=== PATIENT | male | born 1960 | race Caucasian/White ===

== ENCOUNTER 2017-03-13 06:45 | Inpatient (IN) | payer MEDICARE, BC ==
[2017-03-13] MEDS ORDERED: ONDANSETRON HCL INJ/PF 4 MG/2 ML SDV IV ONE (07:28)
[2017-03-13] MEDS ORDERED: NORMAL SALINE 1000 ML 1,000 ML IV ONE (07:28)
[2017-03-13] MEDS ORDERED: MORPHINE SULFATE 10 MG/ML INJ IV ONE ×3 (07:28→10:40)
[2017-03-13 08:27] LABS: APPEARANCE,URINE SLIGHTLY-CLOUDY; BILIRUBIN,URINE NEGATIVE (NEGATIVE); GLUCOSE, URINE 150 mg/dL (NEGATIVE); KETONES,URINE 80 mg/dL (NEGATIVE); LEUKOCYTE ESTERASE,URINE NEGATIVE (NEGATIVE); NITRITE,URINE NEGATIVE (NEGATIVE); PROTEIN,URINE 100 mg/dL (NEGATIVE); URINE SPECIFIC GRAVITY 1.032; UROBILINOGEN,URINE NEGATIVE mg/dL (<2.0)
[2017-03-13 08:32] LABS: ABSOLUTE BASOPHILS # (AUTO) 0.1 10^3/uL (0.0-0.2); ABSOLUTE MONOCYTES (AUTO) 0.6 10^3/uL (0.1-1.4); ABSOLUTE NEUT (AUTO) 13.7 10^3/uL (1.7-8.2); BASOPHILS % (AUTO) 0.3 % (0-2); EOSINOPHILS % (AUTO) 0.1 % (0-6); HEMATOCRIT 47.4 % (37.9-51.0); HEMOGLOBIN 16.4 g/dL (13.5-17.0); HGB HCT DIFFERENCE 1.8; LYMPHOCYTES % (AUTO) 6.6 % (13-45); MEAN CORPUSCULAR HEMOGLOBIN 29.6 pg (27.0-33.4); MEAN CORPUSCULAR HGB CONC 34.6 g/dL (32.0-36.0); MEAN CORPUSCULAR VOLUME 86 fl (80-97); MONOCYTES % (AUTO) 3.6 % (3-13); RED BLOOD COUNT 5.53 10^6/uL (4.35-5.55); RED CELL DISTRIBUTION WIDTH 12.8 % (11.5-14.0); SEGMENTED NEUTROPHILS % (AUTO) 89.4 % (42-78); WHITE BLOOD COUNT 15.3 10^3/uL (4.0-10.5)
[2017-03-13 08:50] LABS: ALANINE AMINOTRANSFERASE 35 U/L (21-72); ALBUMIN 4.6 g/dL (3.5-5.0); ALKALINE PHOSPHATASE 110 U/L (38-126); ANION GAP 19 (5-19); ASPARTATE AMINO TRANSFERASE 33 U/L (17-59); BILIRUBIN,DIRECT 0.3 mg/dL (0.0-0.4); BILIRUBIN,TOTAL 1.4 mg/dL (0.2-1.3); BLOOD UREA NITROGEN 13 mg/dL (7-20); CALCIUM 9.9 mg/dL (8.4-10.2); CARBON DIOXIDE 20 mmol/L (22-30); CHLORIDE 103 mmol/L (98-107); CREATININE RESULT 1.06 mg/dL (0.52-1.25); GLUCOSE 164 mg/dL (75-110); MAGNESIUM 1.8 mg/dL (1.6-2.3); POTASSIUM 3.7 mmol/L (3.6-5.0); SODIUM 142.1 mmol/L (137-145); TOTAL PROTEIN 7.7 g/dL (6.3-8.2)
--- NOTE | 2017-03-13 09:19 | RADIOLOGY REPORT (SQ) ---
EXAM DESCRIPTION: CT LTD RENAL STONE PROTOCOL ON COMPLETED DATE/TIME: 03/13/2017 9:02 am REASON FOR STUDY: RIGHT RFLANK COMPARISON: CT abdomen pelvis 07/19/2012, 12/12/2008 TECHNIQUE: CT scan of the abdomen and pelvis performed without intravenous or oral contrast. Images reviewed with lung, soft tissue, and bone windows. Reconstructed coronal and sagittal MPR images revi ewed. All images stored on PACS. All CT scanners at this facility use dose modulation, iterative reconstruction, and/or weight based d osing when appropriate to reduce radiation dose to as low as reasonably achievable (ALARA). [facility]: Dose Right [facility]: CareDose [facility]: Dose Right [facility]: Teradose 4D [facility]: [employer] RADIATION DOSE: 7.14mGy. LIMITATIONS: None. FINDINGS: LOWER CHEST: No significant findings. No nodules or infiltrates. NON-CONTRASTED LIVER, SPLEEN, ADRENALS: Evaluation limited by lack of IV contrast. No identified sign ificant masses. PANCREAS: No masses. No peripancreatic inflammatory changes. GALLBLADDER: No identified stones by CT criteria. No inflammatory changes to suggest cholecystitis. RIGHT KIDNEY AND URETER: No suspicious masses. Assessment limited by lack of IV contrast. No signif icant calcifications. No hydronephrosis or hydroureter. LEFT KIDNEY AND URETER: No suspicious masses. Assessment limited by lack of IV contrast. No signifi cant calcifications. No hydronephrosis or hydroureter. AORTA AND RETROPERITONEUM: No aneurysm. No retroperitoneal masses or adenopathy. BOWEL AND PERITONEAL CAVITY: No obvious masses or inflammatory changes. No free fluid. Few scattered colonic diverticuli without CT signs of acute diverticulitis. APPENDIX: Normal. PELVIS, BLADDER, AND ABDOMINAL WALL:No abnormal masses. No free fluid. Bladder normal. BONES: No significant findings. OTHER: No other significant finding. IMPRESSION: No CT evidence of urinary calculi or urinary outflow obstruction. Few descending and sigmoid colon diverticuli without CT signs of acute diverticulitis. TECHNICAL DOCUMENTATION: JOB ID: [id number] Quality ID # [id number]: Final reports with documentation of one or more dose reduction techniques (e.g., Au tomated exposure control, adjustment of the mA and/or kV according to patient size, use of iterative reconstruction technique) 2010 [employer]- All Rights Reserved
[2017-03-13 10:08] LABS: URINE BARBITURATES SCREEN NEGATIVE; URINE METHADONE SCREEN NEGATIVE; URINE OPIATES LOW UNCONFIRMED POSITIVE; URINE PHENCYCLIDINE SCREEN NEGATIVE
[2017-03-13] MEDS: NORMAL SALINE 1000 ML 1,000 ML IV PRN ×2 (10:10→10:11)
[2017-03-13] MEDS ORDERED: CIPROFLOXACIN HCL 500 MG TABLET PO ONE (10:14)
[2017-03-13] MEDS ORDERED: METRONIDAZOLE 500 MG/NS RTU 100 ML IV ONE (10:14)
--- NOTE | 2017-03-13 14:47 | ER Document Report ---
ED General - General Chief Complaint: Abdominal Pain Stated Complaint: ABDOMINAL PAIN/WEAKNESS Time Seen by Provider: 03/13/17 07:12 TRAVEL OUTSIDE OF THE [place] IN LAST 30 DAYS: No - HPI Patient complains to provider of: Right flank right sided abdominal pain Notes: She is coming in the right side of her right abdominal pain. Patient is rolling around the bed looks to be uncomfortable states similar to when he was having a kidney stone in the past. Patient denies any fever chills nausea vomiting. Patient does state some slight diarrhea. Patient denies smoking denies alcohol denies any drug abuse. Patient denies any surgeries on his abdomen. - Related Data Allergies/Adverse Reactions: codeine [Codeine] Adverse Reaction (Mild, Verified 07/19/12 13:01) NSAIDS (Non-Steroidal Anti-Inflamma [Nsaids] Adverse Reaction (Mild, Verified 13:01) Past Medical History - Social History Smoking Status: Unknown if Ever Smoked Family History: Reviewed & Not Pertinent Patient has suicidal ideation: No Patient has homicidal ideation: No - Past Medical History Cardiac Medical History: Reports: Hx Hypercholesterolemia, Hx Hypertension Pulmonary Medical History: Denies: Hx COPD Neurological Medical History: Denies: Hx Cerebrovascular Accident Renal/ Medical History: Reports: Hx Kidney Stones - x 3. Denies: Hx Peritoneal Dialysis Psychiatric Medical History: Reports: Hx Anxiety - Immunizations Hx Diphtheria, Pertussis, Tetanus Vaccination: Yes Review of Systems - Review of Systems Constitutional: No symptoms reported EENT: No symptoms reported Cardiovascular: No symptoms reported Respiratory: No symptoms reported Gastrointestinal: Abdominal pain Genitourinary: No symptoms reported Male Genitourinary: No symptoms reported Musculoskeletal: No symptoms reported Skin: No symptoms reported Hematologic/Lymphatic: No symptoms reported Neurological/Psychological: No symptoms reported Physical Exam - Vital signs Vitals: Pulse Resp BP Pulse Ox 93 24 H 131/83 H 100 03/13/17 06:50 03/13/17 06:50 03/13/17 06:50 03/13/17 06:50 Interpretation: Normal - General General appearance: Alert. No: Appears well - Patient looks to be uncomfortable - HEENT Head: Normocephalic, Atraumatic Eyes: Normal Pupils: PERRL - Respiratory Respiratory status: No respiratory distress Chest status: Nontender Breath sounds: Normal Chest palpation: Normal - Cardiovascular Rhythm: Regular Heart sounds: Normal auscultation Murmur: No - Abdominal Inspection: Normal Distension: No distension Bowel sounds: Normal Tenderness: Tender - Abdominal tenderness Organomegaly: No organomegaly - Back Back: Normal, Nontender - Extremities General upper extremity: Normal inspection, Nontender, Normal color, Normal ROM , Normal temperature General lower extremity: Normal inspection, Nontender, Normal color, Normal ROM , Normal temperature, Normal weight bearing. No: Lori's sign - Neurological Neuro grossly intact: Yes Cognition: Normal Orientation: AAOx4 [place] Coma Scale Eye Opening: Spontaneous [place] Coma Scale Verbal: Oriented [place] Coma Scale Motor: Obeys Commands [place] Coma Scale Total: 15 Speech: Normal Motor strength normal: LUE, RUE, LLE, RLE Sensory: Normal - Psychological Associated symptoms: Normal affect, Normal mood - Skin Skin Temperature: Warm Skin Moisture: Dry Skin Color: Normal Course - Re-evaluation Re-evalutation: 03/13/17 14:42 Is coming in for abdominal pain. Patient does have a sniffing elevated lactic acid and blood in his urine. CT scan noncontrast and IV contrast was performed showing diffuse diverticular disease. Reevaluation patient still having significant tenderness. Multiple IV fluid boluses were ordered patient was given Cipro and Flagyl. A urine drug screen was also performed which returned positive for opiates and amphetamines and marijuana. Although patient was given a good medication this urine drug screen was done prior to this. I did confront the patient about his urine drug screen is that he denied these types of substances on initial visit. Patient states he did take half a Percocet prior to arrival also states he is on Valium. Patient does admit to smoking marijuana 2 weeks ago. Patient denies any amphetamine use. We will continue with IV fluid hydration. Recent evaluation after discussing patient's urine drug screen patient feeling much better now. 03/13/17 15:19 Because of the patient's elevation in lactic acid and continued abdominal pain and did have a surgeon evaluate the patient will admit the patient for observation. - Vital Signs Vital signs: Temp Pulse Resp BP Pulse Ox 98.7 F 98 16 150/97 H 96 03/13/17 14:42 03/13/17 14:42 03/13/17 14:42 03/13/17 14:42 03/13/17 14:42 - Laboratory Result Diagrams: 03/13/17 08:12 03/13/17 08:12 Laboratory results interpreted by me: 03/13/17 03/13/17 03/13/17 07:34 08:12 08:12 WBC 15.3 H Seg Neutrophils % 89.4 H Lymphocytes % 6.6 L Absolute Neutrophils 13.7 H Carbon Dioxide 20 L Glucose 164 H Lactic Acid Total Bilirubin 1.4 H Urine Protein 100 H Urine Glucose (UA) 150 H Urine Ketones 80 H Urine Blood MODERATE H 03/13/17 03/13/17 08:12 13:35 WBC Seg Neutrophils % Lymphocytes % Absolute Neutrophils Carbon Dioxide Glucose Lactic Acid 5.0 H 2.7 H Total Bilirubin Urine Protein Urine Glucose (UA) Urine Ketones Urine Blood Discharge - Discharge Clinical Impression: Marijuana use, Opiate use Abdominal pain Qualifiers: Abdominal location: generalized Qualified Code(s): R10.84 - Generalized abdominal pain Admitting Provider: Surgicalist [facility] Unit Admitted: Surgical Floor Instructions: Abdominal Pain ([facility]), Diverticulitis ([facility]) Additional Instructions: Auditory studies and CAT scans consistent with possible diverticulitis. He may continue to take her pain medication at home. Recommended you stay well- hydrated. May take medication for nausea. Return to the ER symptoms worsen. Prescriptions: Ciprofloxacin HCl [Cipro 500 mg Tablet] 500 mg PO BID #14 tablet Metronidazole [Flagyl 500 mg Tablet] 500 mg PO TID #21 tablet Ondansetron [Zofran Odt 4 mg Tablet] 1 - 2 tab PO Q4H PRN #15 tab.rapdis PRN Reason: For Nausea/Vomiting Referrals: DAKOTA MOTA MD [Primary Care Provider] - Follow up in 3-5 days
[2017-03-13] MEDS ORDERED: MORPHINE SULFATE 10 MG/ML INJ IV PRN (15:43)
--- NOTE | 2017-03-13 15:59 | PDOC H&P ---
History of Present Illness Admission Date/PCP: 03/13/17 15:26 DAKOTA MOTA MD Patient complains of: Abdominal pain since yesterday. History of Present Illness: BAKARI GUIDRY is a 56 year old male, who was in his usual state of health, until yesterday when he developed right-sided and mid abdominal pain, unrelated to food intake. Patient does admit to fried, fatty, and greasy food intolerance , postprandial bloating, gaseousness, indigestion, heartburn, and early satiety. Patient has been having these symptoms for several months. However, today's episode was worse than any other previous episode. Patient denies any fever or chills, choluria or acholic stools, jaundice, or family history of biliary disease. Past Medical History Cardiac Medical History: Reports: Hyperlipidema, Hypertension Pulmonary Medical History: Denies: Chronic Obstructive Pulmonary Disease (COPD) Social History Smoking Status: Unknown if Ever Smoked Family History Family History: Reviewed & Not Pertinent Parental Family History Reviewed: No - Not applicable Children Family History Reviewed: No - Not applicable Sibling(s) Family History Reviewed.: No - Not applicable Medication/Allergy Home Medications: Bisoprolol Fumarate [Zebeta 5 mg Tablet] 5 mg PO 07/19/12 Diazepam [Valium] 10 mg PO QID 07/19/12 Dicyclomine HCl [Bentyl 10 Mg Capsule] 10 mg PO QID 07/19/12 Diltiazem HCl [Dilacor Xr] 180 mg PO DAILY 07/19/12 Hydrocodone/Acetaminophen [Hydrocodon-Acetaminophn 10-660] 1 each PO PRN PRN 07/21 [place]-3/Dha/Epa/Fish Oil [Fish Oil] 1,000 mg PO DAILY 07/19/12 Rosuvastatin Calcium [Crestor 10 mg Tablet] 10 mg PO DAILY 07/19/12 Ciprofloxacin HCl [Cipro 500 mg Tablet] 500 mg PO BID #14 tablet 03/13/17 Metronidazole [Flagyl 500 mg Tablet] 500 mg PO TID #21 tablet 03/13/17 Ondansetron [Zofran Odt 4 mg Tablet] 1 - 2 tab PO Q4H PRN #15 tab.rapdis Allergies/Adverse Reactions: codeine [Codeine] Adverse Reaction (Mild, Verified 07/19/12 13:01) NSAIDS (Non-Steroidal Anti-Inflamma [Nsaids] Adverse Reaction (Mild, Verified 13:01) Physical Exam Vital Signs: Temp Pulse Resp BP Pulse Ox 98.7 F 98 16 150/97 H 96 03/13/17 14:42 03/13/17 14:42 03/13/17 14:42 03/13/17 14:42 03/13/17 14:42 General appearance: PRESENT: no acute distress Head exam: PRESENT: atraumatic, normocephalic Eye exam: PRESENT: conjunctiva pink, EOMI, PERRLA Mouth exam: PRESENT: moist, neck supple, tongue midline Neck exam: PRESENT: full ROM. ABSENT: carotid bruit, JVD, lymphadenopathy, tenderness, thyromegaly, tracheal deviation Respiratory exam: PRESENT: clear to auscultation darleen Cardiovascular exam: PRESENT: RRR. ABSENT: diastolic murmur, systolic murmur GI/Abdominal exam: PRESENT: normal bowel sounds, soft, tenderness - Mild in epigastrium, right upper quadrant, and right flank. ABSENT: guarding, Flanagan's sign, rebound Rectal exam: PRESENT: deferred Results Impressions: Limited or Localized CT 03/13/17 08:19 IMPRESSION: No CT evidence of urinary calculi or urinary outflow obstruction. Few descending and sigmoid colon diverticuli without CT signs of acute diverticulitis. Assessment & Plan - Diagnosis (1) Abdominal pain Qualifiers: Abdominal location: generalized Qualified Code(s): R10.84 - Generalized abdominal pain - Plan Summary Plan Summary: The patient is to undergo ultrasound of the abdomen while in the E.R. If this exam is normal, then HIDA scan with CCK stimulation will be ordered.
[2017-03-13] MEDS ORDERED: ENOXAPARIN SODIUM INJ 40 MG/0.4 ML DISP.SYRIN SUBCUT ONE (16:00)
--- NOTE | 2017-03-13 17:55 | RADIOLOGY REPORT (SQ) ---
EXAM DESCRIPTION: CHEST SINGLE VIEW COMPLETED DATE/TIME: 03/13/2017 4:49 pm REASON FOR STUDY: Preoperative evaluation COMPARISON: 02/15/2017 CT chest. NUMBER OF VIEWS: One view. TECHNIQUE: Single frontal radiographic view of the chest acquired. LIMITATIONS: None. FINDINGS: LUNGS AND PLEURA: No opacities, masses or pneumothorax. No pleural effusion. MEDIASTINUM AND HILAR STRUCTURES: No masses. Contour normal. HEART AND VASCULAR STRUCTURES: Heart normal in size. Normal vasculature. BONES: No acute findings. HARDWARE: None in the chest. OTHER: No other significant finding. IMPRESSION: NO SIGNIFICANT RADIOGRAPHIC FINDING IN THE CHEST. TECHNICAL DOCUMENTATION: JOB ID: [id number] [employer]- All Rights Reserved
[2017-03-13] MEDS: ONDANSETRON HCL INJ/PF 4 MG/2 ML SDV IV PRN (18:53)
[2017-03-13] MEDS: OXYCODONE-ACETAMINOPHEN 5-325 MG TABLET PO PRN (18:54)
[2017-03-13] MEDS: DEXTROSE 5%-LACTATED RINGERS 1,000 ML IV PRN (19:00)
--- NOTE | 2017-03-13 22:00 | RADIOLOGY REPORT (SQ) ---
EXAM DESCRIPTION: U/S ABDOMEN COMPLETE W/O DOP COMPLETED DATE/TIME: 03/13/2017 9:49 pm REASON FOR STUDY: Symptoms consistent with biliary pathology COMPARISON: None. TECHNIQUE: Dynamic and static grayscale images acquired of the abdomen and recorded on PACS. Additio nal selected color Doppler and spectral images recorded. LIMITATIONS: Study limited due to acoustical interference from fat or from air in the bowel. FINDINGS: PANCREAS: Poorly seen secondary to acoustical interference from fat or from air in the bow el. LIVER: Echotexture is coarse with increased echogenicity consistent with fatty infiltration. LIVER VASCULATURE: Normal directional flow of the main portal vein and hepatic veins. GALLBLADDER: No stones. Normal wall thickness. No pericholecystic fluid. ULTRASOUND-DETECTED THURMAN'S SIGN: Negative. INTRAHEPATIC DUCTS AND COMMON DUCT: CBD and intrahepatic ducts normal caliber. No filling defects. INFERIOR VENA CAVA: Poorly seen secondary to acoustical interference from fat or from air in the haydee l. AORTA: Poorly seen secondary to acoustical interference from fat or from air in the bowel. RIGHT KIDNEY: Normal size. Normal echogenicity. No solid or suspicious masses. No hydronephrosis. No calcifications. LEFT KIDNEY: Normal size. Normal echogenicity. No solid or suspicious masses. No hydronephrosis. No calcifications. SPLEEN:Normal size. No solid masses. PERITONEAL AND PLEURAL SPACES: No ascites or effusions. OTHER: No other significant finding. IMPRESSION: FATTY INFILTRATION OF THE LIVER. No gallstones or biliary dilatation identified. TECHNICAL DOCUMENTATION: JOB ID: [id number] [employer]- All Rights Reserved
[2017-03-14] MEDS: OXYCODONE-ACETAMINOPHEN 5-325 MG TABLET PO PRN (06:42)
[2017-03-14] MEDS ORDERED: ENOXAPARIN SODIUM INJ 40 MG/0.4 ML DISP.SYRIN SUBCUT SCH (08:00)
[2017-03-14] MEDS ORDERED: LIDOCAINE 2% INJ-PF (20 MG/ML) 10 ML AMPUL ONE (09:12)
[2017-03-14] MEDS ORDERED: ONDANSETRON HCL INJ/PF 4 MG/2 ML SDV ONE (09:12)
[2017-03-14] MEDS ORDERED: DEXAMETHASONE SOD PHOSPHATE INJ 4 MG/1 ML VIAL ONE (09:12)
[2017-03-14] MEDS ORDERED: ROCURONIUM BROMIDE INJ 50 MG/5 ML VIAL IV ONE (09:12)
[2017-03-14] MEDS ORDERED: METOCLOPRAMIDE HCL INJ/PF 10 MG/2 ML SDV ONE (09:12)
[2017-03-14] MEDS ORDERED: SUCCINYLCHOLINE CHLORIDE INJ 200 MG/10 ML VIAL ONE (09:12)
[2017-03-14] MEDS: ONDANSETRON HCL INJ/PF 4 MG/2 ML SDV IV PRN (10:31)
[2017-03-14 10:56] LABS: HEMATOCRIT 48.4 % (37.9-51.0); HEMOGLOBIN 16.3 g/dL (13.5-17.0); HGB HCT DIFFERENCE 0.5; MEAN CORPUSCULAR HGB CONC 33.6 g/dL (32.0-36.0); MEAN CORPUSCULAR VOLUME 86 fl (80-97); WHITE BLOOD COUNT 25.5 10^3/uL (4.0-10.5)
[2017-03-14] MEDS ORDERED: PHARMACY COMMUNICATION ORDER MC NR (11:00)
[2017-03-14] MEDS ORDERED: OXYCODONE-ACETAMINOPHEN 5-325 MG TABLET NG PRN (11:06)
[2017-03-14 11:18] LABS: ALANINE AMINOTRANSFERASE 29 U/L (21-72); ALBUMIN 3.5 g/dL (3.5-5.0); ALKALINE PHOSPHATASE 76 U/L (38-126); ANION GAP 18 (5-19); ASPARTATE AMINO TRANSFERASE 32 U/L (17-59); BILIRUBIN,DIRECT 0.3 mg/dL (0.0-0.4); BILIRUBIN,TOTAL 1.2 mg/dL (0.2-1.3); BLOOD UREA NITROGEN 21 mg/dL (7-20); CALCIUM 9.1 mg/dL (8.4-10.2); CARBON DIOXIDE 19 mmol/L (22-30); CHLORIDE 101 mmol/L (98-107); CREATININE RESULT 0.95 mg/dL (0.52-1.25); GLUCOSE 196 mg/dL (75-110); POTASSIUM 3.7 mmol/L (3.6-5.0); SODIUM 138.4 mmol/L (137-145); TOTAL PROTEIN 6.5 g/dL (6.3-8.2)
--- NOTE | 2017-03-14 11:20 | RADIOLOGY REPORT (SQ) ---
EXAM DESCRIPTION: KUB/ABDOMEN (SINGLE VIEW) COMPLETED DATE/TIME: 03/14/2017 11:10 am REASON FOR STUDY: Check Placement of NG Tube COMPARISON: 03/13/2017 chest x-ray NUMBER OF VIEWS: One view. TECHNIQUE: Upright radiographic image of the abdomen acquired. LIMITATIONS: None. FINDINGS: BOWEL GAS PATTERN: There are couple gas-filled loops of small bowel in the mid abdomen. T here is large bowel gas present. The overall appearance is not suggestive of obstruction. CALCIFICATIONS: No suspicious calcifications. SOFT TISSUES: There is no free air. There is no organomegaly. HARDWARE: An NG tube extends to the stomach. BONES: No acute fracture. No worrisome bone lesions. OTHER: No other significant finding. IMPRESSION: Nonspecific abdomen. There are couple of prominent gas-filled loops of small bowel. Th petrona could indicate partial small bowel obstruction versus ileus. Is there any clinical evidence of p ancreatitis? TECHNICAL DOCUMENTATION: JOB ID: [id number] [employer]- All Rights Reserved
[2017-03-14 11:30] LABS: BASOPHILS % (MANUAL) 0 % (0-2); EOSINOPHILS % (MANUAL) 0 % (0-6); LYMPHOCYTES % (MANUAL) 6 % (13-45); TOTAL CELLS COUNTED 100
[2017-03-14 11:31] LABS: PLATELET CLUMPS PRESENT; RBC MORPHOLOGY COMMENT NORMO-CYTIC/CHROMIC
[2017-03-14] MEDS ORDERED: ERTAPENEM SODIUM INJ 1 GM VIAL IV ONE (11:53)
[2017-03-14] MEDS ORDERED: NORMAL SALINE 1000 ML 1,000 ML IV ONE (12:00)
[2017-03-14] MEDS: DEXTROSE 5%-LACTATED RINGERS 1,000 ML IV PRN (13:14)
[2017-03-14] MEDS ORDERED: ERTAPENEM SODIUM 1 GM in NORMAL SALINE 50 ML IV SCH (14:00)
[2017-03-14] MEDS ORDERED: ONDANSETRON HCL INJ/PF 4 MG/2 ML SDV IV PRN ×2 (14:44→20:53)
[2017-03-14] MEDS ORDERED: MORPHINE SULFATE 10 MG/ML INJ IV PRN ×2 (14:47→20:53)
--- NOTE | 2017-03-14 16:46 | RADIOLOGY REPORT (SQ) ---
EXAM DESCRIPTION: CT ABD/PELVIS WITH IV ORAL COMPLETED DATE/TIME: 03/14/2017 4:04 pm REASON FOR STUDY: acute abdomen COMPARISON: None. TECHNIQUE: CT scan of the abdomen and pelvis performed using helical scanning technique with dynamic intravenous contrast injection. No oral contrast. Images reviewed with lung, soft tissue, and bone windows. Reconstructed coronal and sagittal MPR images reviewed. Delayed images for evaluation of the urinary system also acquired. All images stored on PACS. All CT scanners at this facility use dose modulation, iterative reconstruction, and/or weight based d osing when appropriate to reduce radiation dose to as low as reasonably achievable (ALARA). [facility]: Dose Right [facility]: CareDose [facility]: Dose Right [facility]: Teradose 4D [facility]: [employer] CONTRAST TYPE AND DOSE: 90mL Isovue 370- low osmolar. RENAL FUNCTION: Creatinine 1 BUN 21 RADIATION DOSE: 18.63mGy. LIMITATIONS: None. FINDINGS: LOWER CHEST: There is subsegmental atelectasis in the lung bases. LIVER: Normal size. No masses or dilated ducts. SPLEEN: Normal size. No focal lesions. PANCREAS: No masses. No significant calcifications. No adjacent inflammation or peripancreatic fluid collections. Pancreatic duct not dilated. GALLBLADDER: No identified stones by CT criteria. No inflammatory changes to suggest cholecystitis. ADRENAL GLANDS: No significant masses or asymmetry. RIGHT KIDNEY AND URETER: No solid masses. No significant calcifications. No hydronephrosis or hyd roureter. LEFT KIDNEY AND URETER: No solid masses. No significant calcifications. No hydronephrosis or hydr oureter. AORTA AND VESSELS: No aneurysm. No dissection. Renal arteries, SMA, celiac without stenosis. RETROPERITONEUM: No retroperitoneal adenopathy, hemorrhage or masses. BOWEL AND PERITONEAL CAVITY: There are some distended loops of small bowel in the mid abdomen. There are areas of thickening of the wall of some of the small bowel loops and of the: . Occasional dive rticula arise from the sigmoid colon. No definite transition point is appreciated in associated with the prominent loops of bowel in mid abdomen. APPENDIX: Normal. PELVIS: There is a small amount of free fluid in the pelvis and around the right colon and around the liver. ABDOMINAL WALL: No masses. No hernias. BONES: No significant or acute findings. OTHER: No other significant finding. IMPRESSION: 1. There is a small amount of ascites. 2. There are some distended loops of small bowel in the upper mid abdomen such that a partial small bowel obstruction cannot be ruled out. No definite transition point is seen, however. 3. There is thickening of the wall of some of the small bowel and most of the colon. There is a his tory of or clinical evidence of inflammatory bowel disease? 4. There is mild diverticulosis coli. TECHNICAL DOCUMENTATION: JOB ID: [id number] Quality ID # [id number]: Final reports with documentation of one or more dose reduction techniques (e.g., Au tomated exposure control, adjustment of the mA and/or kV according to patient size, use of iterative reconstruction technique) 2010 [employer]- All Rights Reserved
[2017-03-14] MEDS ORDERED: NORMAL SALINE 1000 ML 1,000 ML IV PRN (18:21)
[2017-03-14] MEDS ORDERED: FENTANYL CITRATE INJ/PF 100 MCG/2 ML AMPUL ONE (19:17)
[2017-03-14] MEDS ORDERED: HYDROMORPHONE HCL INJ/PF 2 MG/ML AMPULE ONE (19:17)
[2017-03-14] MEDS ORDERED: PROPOFOL INJ 200 MG/20 ML VIAL IV ONE (19:18)
[2017-03-14] MEDS ORDERED: ACETAMINOPHEN 100 ML IV ONE (19:18)
[2017-03-14] MEDS ORDERED: MIDAZOLAM 2 MG/2 ML INJ ONE ×2 (19:18→21:44)
[2017-03-14] MEDS ORDERED: EPHEDRINE SULFATE INJ 50 MG/1 ML AMPULE ONE (19:18)
[2017-03-14] MEDS ORDERED: IBUPROFEN INJ 800 MG/8 ML VIAL IV ONE (19:18)
[2017-03-14] MEDS ORDERED: BUPIVACAINE HCL 0.25 % INJ/PF (2.5 MG/1 ML) 30 ML VIAL ONE (19:24)
--- NOTE | 2017-03-14 20:14 | PROGRESS NOTE E ---
Progress Note NAME: BAKARI GUIDRY : 1960 AGE: 56Y DATE: 03/14/2017 ROOM: 415 It is hospital day #2 for the patient admitted to the surgical service for acute abdominal pain. SUBJECTIVE: The patient continues to have abdominal pain and bloating. Earlier today at around 10:00 a.m., he had a nasogastric tube inserted which drained approximately a liter of fluid. The patient continued to have abdominal pain, but it had subsided. The patient was seen by Dr. Campos and found to have significant abdominal tenderness with guarding. The patient's past medical and surgical history are significant for irritable bowel syndrome for which he takes Bentyl. On further review of the patient's medical record, it was determined that the patient although he denied taking narcotics was found to have metabolized in his urine positive for opiates and marijuana. Throughout the day, the patient continued to have abdominal pain but was withhold from receiving pain medications so that we could follow the natural course of his clinical condition. The patient's laboratory profile was repeated, and his white blood cell count had increased to 25,000. The percent neutrophils was not reported. The patient's chemistry showed bicarbonate down to 19, and this was all despite fluid resuscitation during the course of the day. His urine remained very dark. For the above reasons, the patient underwent repeat CT scan of the abdomen and pelvis with IV and enteral contrast delivered through the nasogastric tube. This revealed no evidence of visceral leak or free air, but there was some fluid in the pericolic region on the right side and some fluid in the pelvis. Of note, there was dilated proximal jejunum with what appeared to be a transition point in the left mid posterior abdominal region. The CT scan was reviewed with at least 2 radiologists. OBJECTIVE: Dr. Campos examined the patient today, and despite the patient's self report of feeling better, he continued on physical exam to have peritoneal signs with guarding. By 7:00 p.m. in the evening, I felt that exploratory laparotomy was indicated because of the risk of compromising small bowel due to further delay. PLAN: We therefore plan to take the patient to the operating room for exploratory laparoscopy, possible laparotomy, lysis of adhesions, and any other necessary surgery. This was explained to the patient in detail. He expresses understanding and agreed to proceed. DICTATING PHYSICIAN: RAUDEL CAMPOS M.D. [id number] PHY#: [id number] ID: [id number] JOB#: [id number] ACCT: [id number] cc: >
[2017-03-14] MEDS ORDERED: MEPERIDINE HCL/PF INJ 25 MG/1 ML DISP.SYRIN IV PRN (20:53)
[2017-03-14] MEDS ORDERED: FENTANYL CITRATE INJ/PF 100 MCG/2 ML AMPUL IV PRN ×3 (20:53)
[2017-03-14] MEDS ORDERED: DIPHENHYDRAMINE HCL 50 MG/ML VIAL IV PRN (20:53)
[2017-03-14] MEDS ORDERED: PROMETHAZINE HCL INJ 25 MG/1 ML VIAL IV PRN ×2 (20:53)
--- NOTE | 2017-03-14 22:03 | Operative Report ---
Operative Report DATE OF SURGERY: 03/14/17 PREOPERATIVE DIAGNOSIS: 1. Acute abdomen; rule out small bowel obstruction. 2. Metabolic acidosis POSTOPERATIVE DIAGNOSIS: Same with sequential sections of the jejunum with ischemia and hemorrhagic inflammation OPERATION: 1. Exploratory laparoscopy. 2. Exploratory laparotomy with peritoneal washout. 3. Placement of wound VAC SURGEON: RAUDEL SKINNER ANESTHESIA: GA TISSUE REMOVED OR ALTERED: None COMPLICATIONS: None ESTIMATED BLOOD LOSS: Scant INTRAOPERATIVE FINDINGS: See below PROCEDURE: The patient was taken to the operating room where general anesthesia was induced without complication. Velazco catheter was inserted and slightly cathleen urine returned. An additional IV was started in the patient's left distal forearm. The abdomen was exposed, prepped draped sterile fashion instrumentation set up for laparoscopic possible conversion to open exploratory laparotomy. Surgical timeout and surgical plan discussed. A initial stab was made above the umbilicus and a varies needle was inserted in the peritoneal cavity. Pneumoperitoneum was established. Veress needle was removed and a 5 mm port was placed into the peritoneal cavity and a flexible 5 mm scope was inserted. A second port was placed in the subxiphoid area, 5 mm. Findings are significant for approximately 750 cc of dark bile tinged peritoneal fluid. We aspirated this fluid out, and visualized what we could of the viscera. Findings are significant for a erythematous appearing bowel in the proximal jejunal region. The stomach appeared decompressed successfully with a nasogastric tube. Because I could not ascertain exactly what was going on, we decided to convert to an open exploration The abdomen was open by connecting the previously placed port site incisions. The incision was extended towards the xiphoid process. Bookwalter retractor system was established. The falciform ligament was taken down between clamps and 2-0 Vicryl ties. Systematic examination of the peritoneal cavity included visualization of the stomach and the pylorus which appeared normal. The nasogastric tube was pulled further into the lumen of the body of the stomach. The liver appeared normal as did the gallbladder, although slightly shrunken. It was nonischemic or inflamed. We elevated the transverse colon cephalad, and identified the proximal jejunum which had several loops that were adhesed together with an inflammatory peel these were gently broken up and the 2 loops of jejunum appear to be erythematous edematous but not frankly ischemic. There was no evidence of true stricture banding these 2 loops together. Proximal to these 2 loops was the very first portion of the jejunum extending from the ligament of Treitz to the erythematous loops previously discussed. This first loop of jejunum covering a distance of approximately 15-18 cm was frankly violaceous and ischemic appearing. We warmed up the peritoneal cavity irrigated out several times with warm saline and the appearance of this first jejunal loop did not change significantly. We brought Doppler onto the field and the hand-held probe was used to assess pulse status in the jejunal arcades. There appeared to be reasonable signal strength in the second and third loops of jejunum but the first loop did not have good pulses signals. I did open the ligament of Treitz to free up the fourth portion of the duodenum and segment of bowel appeared pink and viable. Concern that the bowel although threatened was not necrotic, nor perforated and did not warrant at this setting a transection which would have left a transection point just beyond the ligament of Treitz. I discussed this with Dr. Nir Wakefield, trauma critical care surgeon from [facility], who agreed that we should leave this bowel as it is and set the patient up for a second look operation in 18-24 hours to reassess this limb of small bowel. We washed the peritoneal cavity out, then placed a wound VAC in position, specifically the model design for an open VAC pack . The patient was taken to the intensive care unit and also more hospital intubated, hemodynamically stable. Plans will be to transfer the patient to [facility] for further care.
[2017-03-14] MEDS ORDERED: PROPOFOL 100 ML IV ONE (22:10)
[2017-03-14] MEDS ORDERED: PROPOFOL 100 ML IV PRN ×2 (22:33→22:41)
--- NOTE | 2017-03-14 22:48 | DISCHARGE SUMMARY E ---
Discharge Summary NAME: BAKARI GUIDRY : 1960 AGE: 56Y ADMITTED: 03/13/2017 DISCHARGED: 03/15/2017 SUMMARY OF HOSPITALIZATION: The patient is a 56-year-old white male who presents to the emergency department at [facility] complaining of acute onset abdominal pain, right-sided. He was evaluated and found to have abdominal tenderness. A gallbladder ultrasound was diagnosed as unremarkable. The patient's laboratory profile showed leukocytosis and metabolic acidosis with mild hyperglycemia. The patient underwent CT of the abdomen and pelvis without oral or IV contrast, which was essentially nondiagnostic. The patient was admitted to the surgical service and kept n.p.o. and IV fluids. Plans were made to obtain a HIDA scan the following morning. The patient continues to have abdominal pain. The HIDA scan was canceled and the patient had a nasogastric tube inserted for relief. Repeat labs showed a worsening leukocytosis and acidosis. A repeat CT scan with oral contrast was obtained; technically the contrast was placed through the nasogastric tube. This showed findings consistent with a possible small bowel obstruction, proximal jejunum. Because of the patient's deteriorating clinical condition and abnormal CT scan findings, he was taken to the operating room for exploratory surgery. The patient was taken to the operating room by Dr. Campos where he underwent exploratory laparoscopy conversion to exploratory laparotomy, peritoneal washout. He was found to have several loops of jejunum very proximal that were ischemic and/or involved with hemorrhagic inflammation. There was no obvious obstructive band, adhesion, transition point, perforation or necrosis. For this reason the decision was made to place a temporary closure on the abdominal wall, and set the patient up for a second look in 18 to 24 hours. The patient was stabilized at this point and taken to the Intensive Care Unit for further resuscitation. Arrangements were made to transfer the patient to the care of the critical care trauma service at [facility] for additional management under the direction of Dr. Nir Wakefield, string studies director Services at [facility]. FINAL DIAGNOSIS: ACUTE ABDOMEN WITH ISCHEMIC AND HEMORRHAGICALLY INFLAMED JEJUNUM, STATUS POST EXPLORATORY LAPAROTOMY, WASHOUT AND VAC CLOSURE OF THE ABDOMINAL WALL BY DR. CAMPOS. DISPOSITION: Arrangements will be made to transfer the patient via ground or helicopter pending availability to [facility] for further care. DICTATING PHYSICIAN: RAUDEL CAMPOS M.D. [id number] PHY#: [id number] ID: [id number] JOB#: [id number] ACCT: [id number] cc:RAUDEL CAMPOS M.D. E. . GROUP, > [facility]
[2017-03-14 23:12] LABS: ABSOLUTE LYMPHOCYTES (AUTO) 1.1 10^3/uL (0.5-4.7); ABSOLUTE MONOCYTES (AUTO) 0.8 10^3/uL (0.1-1.4); ABSOLUTE NEUT (AUTO) 14.3 10^3/uL (1.7-8.2); ANION GAP 13 (5-19); BASOPHILS % (AUTO) 0.1 % (0-2); BLOOD UREA NITROGEN 14 mg/dL (7-20); CALCIUM 7.9 mg/dL (8.4-10.2); CARBON DIOXIDE 21 mmol/L (22-30); CHLORIDE 104 mmol/L (98-107); CREATININE RESULT 0.92 mg/dL (0.52-1.25); GLUCOSE 126 mg/dL (75-110); HEMATOCRIT 51.5 % (37.9-51.0); HEMOGLOBIN 17.1 g/dL (13.5-17.0); HGB HCT DIFFERENCE -0.2; LYMPHOCYTES % (AUTO) 6.8 % (13-45); MEAN CORPUSCULAR HEMOGLOBIN 28.9 pg (27.0-33.4); MEAN CORPUSCULAR HGB CONC 33.1 g/dL (32.0-36.0); MEAN CORPUSCULAR VOLUME 87 fl (80-97); MONOCYTES % (AUTO) 5.1 % (3-13); POTASSIUM 4.3 mmol/L (3.6-5.0); RED BLOOD COUNT 5.89 10^6/uL (4.35-5.55); RED CELL DISTRIBUTION WIDTH 13.4 % (11.5-14.0); SODIUM 137.8 mmol/L (137-145); WHITE BLOOD COUNT 16.3 10^3/uL (4.0-10.5)
--- NOTE | 2017-03-14 23:24 | RADIOLOGY REPORT (SQ) ---
EXAM DESCRIPTION: CHEST SINGLE VIEW COMPLETED DATE/TIME: 03/14/2017 10:20 pm REASON FOR STUDY: ETT Placement COMPARISON: 03/13/2017 EXAM PARAMETERS: NUMBER OF VIEWS: One view. TECHNIQUE: Single frontal radiographic view of the chest acquired. RADIATION DOSE: NA LIMITATIONS: None. FINDINGS: LUNGS AND PLEURA: No opacities, masses or pneumothorax. No pleural effusion. MEDIASTINUM AND HILAR STRUCTURES: No masses. Contour normal. HEART AND VASCULAR STRUCTURES: Heart normal in size. Normal vasculature. BONES: No acute findings. HARDWARE: Endotracheal tube is identified with its tip the level of the thoracic inlet. NG tube is s een in course to the abdomen. OTHER: No other significant finding. IMPRESSION: Endotracheal tube with its tip at the level of the thoracic inlet. NG tube is seen in c ourse to the abdomen. No acute consolidations are identified. Other findings as noted above TECHNICAL DOCUMENTATION: JOB ID: [id number]
--- NOTE | 2017-03-14 23:52 | EKG REPORT ---
SEVERITY:- ABNORMAL ECG - SINUS TACHYCARDIA MULTIPLE ATRIAL PREMATURE COMPLEXES INCOMPLETE RIGHT BUNDLE BRANCH BLOCK INFERIOR INFARCT, AGE INDETERMINATE : Confirmed by: Caroline Dumont 14-Mar-2017 23:51:43
[2017-03-15] MEDS ORDERED: PROPOFOL 100 ML IV PRN (00:02)
[2017-03-15 02:03] VITALS: BP 90/68
== END 2017-03-15 02:40 | disposition short-term general hospital (02) | DRG 345 ==
LOC: ER 06:45 → EH 15:26 → OBSVTOIN 15:43 → 4N 18:40 → ICU 03-14 22:01
PROVIDERS: ATTEND Surgery
PROC: 0WJP0ZZ Inspection of Gastrointestinal Tract, Open Approach (ICD-10-PCS; 2017-03-14)
PROC: 0DJD4ZZ Inspection of Lower Intestinal Tract, Percutaneous Endoscopic Approach (ICD-10-PCS; principal; 2017-03-14 20:00)
DX: K55.8 Other vascular disorders of intestine (principal); E87.2 Acidosis; Z53.31 Laparoscopic surgical procedure converted to open procedure; E87.5 Hyperkalemia; I10 Essential (primary) hypertension; Z79.899 Other long term (current) drug therapy; Z88.8 Allergy status to other drugs, medicaments and biological substances
CPT/HCPCS: 36415; 71010; 74000; 74177; 76380; 76700; 790; 80048; 80053; 80076; 80307; 81001; 83605; 83690; 83735; 85025; 87040; 93005; 93010; 94002; 94003; 96361; 96365; 96375; 96376; 99285; J0131; J0330; J1100; J1170; J1335; J1650; J1741; J2250; J2270; J2405; J2704; J2765; J3010; J3490; J7030

== ENCOUNTER 2017-03-25 23:05 | Emergency (ER) | payer BC ==
[2017-03-26] MEDS ORDERED: NORMAL SALINE 1000 ML 1,000 ML IV ONE ×2 (00:10→02:50)
[2017-03-26] MEDS ORDERED: ONDANSETRON HCL INJ/PF 4 MG/2 ML SDV IV ONE (00:10)
--- NOTE | 2017-03-26 00:12 | ER Document Report ---
ED General - General Chief Complaint: Post Surgical Pain Stated Complaint: ABDOMINAL PAIN Time Seen by Provider: 03/25/17 23:49 Notes: Patient is a 56 year old male recently hospitalized for ischemic small bowel infarction, transferred to [facility] and discharged 2 days ago who presents with 24 hours of progressively worsening generalized abdominal pain. Patient states that he has been taking oxycodone at home without any improvement of his symptoms. Does describe the pain as a severe, constant, aching pain to the entire abdomen. Nothing worsens his pain he has had associated nausea without vomiting. He has not contacted his surgeon regarding today's concerns. She denies any chest pain, shortness of breath, fever, and notes that he has had bowel movements since being discharged home. Denies any drainage from his surgical wound. TRAVEL OUTSIDE OF THE [place] IN LAST 30 DAYS: No - Related Data Allergies/Adverse Reactions: codeine [Codeine] Adverse Reaction (Mild, Verified 07/19/12 13:01) NSAIDS (Non-Steroidal Anti-Inflamma [Nsaids] Adverse Reaction (Mild, Verified 13:01) Past Medical History - General Information source: Patient - Social History Smoking Status: Never Smoker Frequency of alcohol use: None Drug Abuse: None Lives with: Alone Family History: Reviewed & Not Pertinent - Past Medical History Cardiac Medical History: Reports: Hx Hypercholesterolemia, Hx Hypertension Pulmonary Medical History: Denies: Hx COPD Neurological Medical History: Denies: Hx Cerebrovascular Accident Renal/ Medical History: Reports: Hx Kidney Stones - x 3. Denies: Hx Peritoneal Dialysis Psychiatric Medical History: Reports: Hx Anxiety Past Surgical History: Reports: Hx Abdominal Surgery - 03/15/17 abd colectomy - Immunizations Hx Diphtheria, Pertussis, Tetanus Vaccination: Yes Review of Systems - Review of Systems Notes: Constitutional: Negative for fever. HENT: Negative for sore throat. Eyes: Negative for visual changes. Cardiovascular: Negative for chest pain. Respiratory: Negative for shortness of breath. Gastrointestinal: Positive for abdominal pain and nausea Genitourinary: Negative for dysuria. Musculoskeletal: Negative for back pain. Skin: Negative for rash. Neurological: Negative for headaches, weakness or numbness. 10 point ROS negative except as marked above and in HPI. Physical Exam - Vital signs Vitals: Resp Pulse Ox 14 94 03/25/17 23:11 03/25/17 23:11 Interpretation: Normal Notes: PHYSICAL EXAMINATION: GENERAL: Appears ill, diaphoretic and pale HEAD: Atraumatic, normocephalic. EYES: Pupils equal round and reactive to light, extraocular movements intact, sclera anicteric, conjunctiva are normal. ENT: nares patent, oropharynx clear without exudates. Dry mucous membranes. NECK: Normal range of motion, supple without lymphadenopathy LUNGS: Breath sounds clear to auscultation bilaterally and equal. No wheezes rales or rhonchi. HEART: Regular tachycardia without murmurs ABDOMEN: Soft with diffuse abdominal tenderness worse in the right lower, suprapubic and left lower quadrant with focal rebound and guarding in all of these quadrants. There is a midline abdominal laparotomy incisional scar with jia in place. EXTREMITIES: Normal range of motion, no pitting or edema. No cyanosis. NEUROLOGICAL: No focal neurological deficits. Moves all extremities spontaneously and on command. PSYCH: Normal mood, normal affect. Skin: Pale and diaphoretic Course - Re-evaluation Re-evalutation: 03/26/17 00:11 Patient presents very ill in appearance, pale, diaphoretic, tachycardic in the 130s with exquisite lower abdominal tenderness on palpation with rebound tenderness as well as voluntary and involuntary guarding. Review of patient's prior hospitalization demonstrates that he had ischemic intestinal disease of the jejunum requiring emergent transfer to [facility]. This definitive course there is unclear based on the paperwork provided by the patient but it appears that he did have a partial colectomy per his report. He has no ostomy in place. Immediate concern will be for recurrent ischemic bowel disease versus a possible bowel perforation versus possible intra-abdominal abscess. Patient is critically ill at this time. He will be started on IV fluids, pain antiemetics will be started. A stat CTA of the abdomen will be obtained. Basic laboratories have also been obtained. 03/26/17 01:12 Patient appears clinically much improved after initiation of IV fluids. Heart rate has improved down to 112. His pain is controlled at this time. Patient has very poor IV access and we are working to establish an appropriate line for CTA. 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 I contacted [facility] and have requested an emergent transfer of this patient back to [facility]. Patient will be started on a heparin infusion. Patient will be administered Zosyn. 03/26/17 02:49 I discussed this case with the surgeon on-call at [facility] who has accepted for transfer via [facility]. 03/26/17 03:14 I have been notified that there transport is not available. They have stated no ground transfer was available until change of shift after approximately 7 AM. This is an unsafe duration of time till transfer and have requested all options including fixing transport be explored immediately patient is increasingly at risk for secondary to bowel infarction. Will also page gen surg national account representative to see if any surgical options are available here. 03/26/17 04:04 Dr. Campos is also evaluated the patient at this time and discussed with the accepting surgeon at [facility]. They have agreed to proceed with ground transport with ongoing heparin infusion with light concerns via an [facility] transport truck. On reassessment patient remained alert, oriented but pale, diaphoretic, ill in appearance. Remains with diffuse abdominal guarding and bloating. 03/26/17 04:27 EMS has arrived to transfer the patient. - Vital Signs Vital signs: Temp Pulse Resp BP Pulse Ox 97.4 F 19 127/86 H 96 03/25/17 23:22 03/26/17 04:12 03/26/17 03:00 03/26/17 04:12 - Laboratory Result Diagrams: 03/26/17 01:38 03/26/17 01:06 Laboratory results interpreted by me: 03/26/17 03/26/17 03/26/17 00:09 01:06 01:38 WBC 19.2 H 19.1 H Hgb 12.5 L 13.0 L Hct 37.2 L Seg Neuts % (Manual) 81 H Lymphocytes % (Manual) 4 L 5 L Monocytes % (Manual) 18 H Metamyelocytes % 1 H Abs Neuts (Manual) 16.5 H 14.7 H Abs Monocytes (Manual) 1.9 H 3.4 H Sodium 133.3 L Potassium 5.8 H Glucose 163 H Calcium 8.0 L Direct Bilirubin 0.5 H Albumin 2.9 L Urine Protein Urine Glucose (UA) Urine Ketones Urine Blood 03/26/17 03:44 WBC Hgb Hct Seg Neuts % (Manual) Lymphocytes % (Manual) Monocytes % (Manual) Metamyelocytes % Abs Neuts (Manual) Abs Monocytes (Manual) Sodium Potassium Glucose Calcium Direct Bilirubin Albumin Urine Protein 30 H Urine Glucose (UA) 50 H Urine Ketones TRACE H Urine Blood LARGE H - Diagnostic Test Radiology reviewed: Reports reviewed - EKG Interpretation by Me Additional EKG results interpreted by me: 03/26/17 04:06 Sinus tachycardia. Rate 112. No ST elevations or depressions. QTC is 470. Critical Care Note - Critical Care Note Total time excluding time spent on procedures (mins): 90 Comments: Critical care time spent obtaining history from patient or surrogate, discussions with consultants, development of treatment plan with patient or surrogate, evaluation of patient's response to treatment, examination of patient , ordering and performing treatments and interventions, ordering and review of laboratory studies, re-evaluation of patient's condition, ordering and review of radiographic studies and review of old charts Discharge - Discharge Clinical Impression: Mesenteric ischemia, Abdominal pain Condition: Critical Disposition: [facility] Referrals: DAKOTA MOTA MD [Primary Care Provider] - Follow up as needed
[2017-03-26] MEDS: MORPHINE SULFATE 10 MG/ML INJ IV PRN ×2 (00:24→02:20)
[2017-03-26 00:52] LABS: HEMATOCRIT 37.2 % (37.9-51.0); HEMOGLOBIN 12.5 g/dL (13.5-17.0); HGB HCT DIFFERENCE 0.3; MEAN CORPUSCULAR HEMOGLOBIN 28.7 pg (27.0-33.4); MEAN CORPUSCULAR HGB CONC 33.6 g/dL (32.0-36.0); MEAN CORPUSCULAR VOLUME 85 fl (80-97); RED BLOOD COUNT 4.36 10^6/uL (4.35-5.55); RED CELL DISTRIBUTION WIDTH 12.9 % (11.5-14.0); WHITE BLOOD COUNT 19.2 10^3/uL (4.0-10.5)
[2017-03-26 01:01] LABS: BAND NEUTROPHILS % (MANUAL) 4 % (3-5); BASOPHILS % (MANUAL) 0 % (0-2); EOSINOPHILS % (MANUAL) 0 % (0-6); LYMPHOCYTES % (MANUAL) 4 % (13-45); TOTAL CELLS COUNTED 100
[2017-03-26 01:05] LABS: BURR CELLS SLIGHT; POIKILOCYTOSIS SLIGHT; POLYCHROMASIA SLIGHT; TOXIC GRANULATION 2+
[2017-03-26 01:34] LABS: ALANINE AMINOTRANSFERASE 36 U/L (21-72); ALBUMIN 2.9 g/dL (3.5-5.0); ALKALINE PHOSPHATASE 74 U/L (38-126); ANION GAP 11 (5-19); ASPARTATE AMINO TRANSFERASE 27 U/L (17-59); BILIRUBIN,DIRECT 0.5 mg/dL (0.0-0.4); BILIRUBIN,TOTAL 0.8 mg/dL (0.2-1.3); BLOOD UREA NITROGEN 16 mg/dL (7-20); CARBON DIOXIDE 24 mmol/L (22-30); CHLORIDE 98 mmol/L (98-107); GLUCOSE 163 mg/dL (75-110); POTASSIUM 5.8 mmol/L (3.6-5.0); SODIUM 133.3 mmol/L (137-145); TOTAL PROTEIN 6.5 g/dL (6.3-8.2)
[2017-03-26] MEDS ORDERED: HEPARIN SODIUM,PORCINE/D5W 250 ML IV PRN (02:35)
[2017-03-26] MEDS ORDERED: HEPARIN SOD (PORCINE) 1,000 UNIT/ML 10 ML VIAL IV ONE (02:35)
--- NOTE | 2017-03-26 02:41 | RADIOLOGY REPORT (SQ) ---
EXAM DESCRIPTION: CTA ABDOMEN/PELVIS W WO COMPLETED DATE/TIME: 03/26/2017 2:10 am REASON FOR STUDY: eval mesenteric ischemia, bowel perforation COMPARISON: 03/14/2017. TECHNIQUE: CT scan of the abdominal aorta extending to the iliac bifurcation performed with and with out intravenous contrast using helical scanning technique with dynamic intravenous contrast injection . Images reviewed with lung, soft tissue, and bone windows. Reconstructed coronal and sagittal MPR im ages reviewed. All images stored on PACS. Advanced 3D imaging as volume rendering, MIPS, SSD performed? yes All CT scanners at this facility use dose modulation, iterative reconstruction, and/or weight based d osing when appropriate to reduce radiation dose to as low as reasonably achievable (ALARA). [facility]: Dose Right [facility]: CareDose [facility]: Dose Right [facility]: Teradose 4D [facility]: [employer] CONTRAST TYPE AND DOSE: contrast/concentration: Isovue 370.00 mg/ml; Total Contrast Delivered: 100.0 ml; Total Saline Delivered: 90.0 ml RENAL FUNCTION: Creatinine 0.8 RADIATION DOSE: 1458 LIMITATIONS: None. FINDINGS: NON-CONTRASTED IMAGING: No significant renal or bladder calcifications. No other significa nt organ calcifications. POST-CONTRAST IMAGING: AORTA AND VESSELS: There is occlusion of the superior mesenteric artery, 2 cm from its origin. The c ommon hepatic artery originates from the SMA and is patent. LUNG BASES: Small atelectasis or scar of the lung bases. No nodules or infiltrates. LIVER: Normal size. No masses or dilated ducts. SPLEEN: Normal size. No focal lesions. PANCREAS: Moderate fat replacement. No masses. No significant calcifications. No adjacent inflammati on or peripancreatic fluid collections. Pancreatic duct not dilated. GALLBLADDER: No identified stones by CT criteria. No inflammatory changes to suggest cholecystitis. ADRENAL GLANDS: No significant masses or asymmetry. RIGHT KIDNEY AND URETER: No mass, calculi or urinary tract obstruction. LEFT KIDNEY AND URETER: No mass, calculi or urinary tract obstruction. RETROPERITONEUM: No retroperitoneal adenopathy, hemorrhage or masses. BOWEL AND PERITONEAL CAVITY: Moderately inflamed loops of jejunal bowel with up to 4.8 cm diameter d istention and small air-fluid levels. Small colonic diverticulosis. Nondistended colon with mild di ffuse wall thickening throughout. Moderate fluid distention of the stomach. Mild fluid distention o f the distal esophagus partially imaged. APPENDIX: Normal. ABDOMINAL WALL: No masses. No hernias. Anterior midline scar. BONY STRUCTURES: No significant or acute findings. 3-D IMAGING: Confirms the above findings. OTHER: No other significant finding. 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 COMMENT: This report was called to JAZLYN BRAVO MD at02:27 on 03/26/2017. TECHNICAL DOCUMENTATION: JOB ID: [id number] Quality ID # [id number]: Final reports with documentation of one or more dose reduction techniques (e.g., Au tomated exposure control, adjustment of the mA and/or kV according to patient size, use of iterative reconstruction technique) 2010 [employer]- All Rights Reserved
[2017-03-26] MEDS ORDERED: PIPERACILLIN/TAZOBACTAM 3.375 GM VIAL IV ONE (02:43)
[2017-03-26 03:14] LABS: PROTHROMBIN TIME 14.5 SEC (11.4-15.4)
[2017-03-26 03:15] LABS: PARTIAL THROMBOPLASTIN TIME 30.3 SEC (23.5-35.8)
[2017-03-26 03:16] LABS: HEMATOCRIT 39.3 % (37.9-51.0); HGB HCT DIFFERENCE -0.3; MEAN CORPUSCULAR HGB CONC 33.1 g/dL (32.0-36.0); MEAN CORPUSCULAR VOLUME 88 fl (80-97); RED BLOOD COUNT 4.49 10^6/uL (4.35-5.55); WHITE BLOOD COUNT 19.1 10^3/uL (4.0-10.5)
[2017-03-26 03:22] VITALS: BP 127/86
[2017-03-26 03:57] LABS: BASOPHILS % (MANUAL) 0 % (0-2); EOSINOPHILS % (MANUAL) 0 % (0-6); LYMPHOCYTES % (MANUAL) 5 % (13-45); TOTAL CELLS COUNTED 100
[2017-03-26 03:59] LABS: RBC MORPHOLOGY COMMENT NORMO-CYTIC/CHROMIC; TOXIC VACUOLATION PRESENT
[2017-03-26 04:13] LABS: APPEARANCE,URINE CLEAR; BILIRUBIN,URINE NEGATIVE (NEGATIVE); GLUCOSE, URINE 50 mg/dL (NEGATIVE); KETONES,URINE TRACE mg/dL (NEGATIVE); LEUKOCYTE ESTERASE,URINE NEGATIVE (NEGATIVE); NITRITE,URINE NEGATIVE (NEGATIVE); PROTEIN,URINE 30 mg/dL (NEGATIVE); UROBILINOGEN,URINE NEGATIVE mg/dL (<2.0)
[2017-03-26 04:14] LABS: URINE SPECIFIC GRAVITY > 1.060
--- NOTE | 2017-03-26 05:58 | CONSULTATION REPORT E ---
Consultation Report NAME: BAKARI GUIDRY : 1960 AGE: 56Y DATE: 03/26/2017 TO: RAUDEL CAMPOS M.D. FROM: Viry OTERO, Requesting Physician CHIEF COMPLAINT: Ischemic bowel. REPORT OF CONSULTATION: The patient is a 56-year-old white, who was recently hospitalized at [facility] from 03/14 to 03/15/2017 for acute abdominal pain. In summary, the patient had an evaluation including CT scan, HIDA scan and gallbladder ultrasonography, which were all fairly nondiagnostic. Because of persisting abdominal pain, progressive leukocytosis and acidosis, the patient was taken to the operating room by Dr. Campos on 03/14/2017, where he was found to have ischemic proximal jejunum, but non-infarcted. He was packed open with VAC pack and shipped to [facility], Acute [facility]. There he remained for approximately 9 days. His abdomen was reexplored following day and subsequently closed without resection of small bowel. According to verbal report by the patient, and conversation with trauma surgeon, Dr. Marycarmen Tamez, the patient did reasonably well. The exact etiology of the ischemic bowel was undetermined. On further questioning with the patient; however, he said he did not feel well the day after he was discharged from [facility], taking an ambulance ride home from [place] to [place], which was 2 days ago. While home, the patient had persistent abdominal pain and comes into the emergency department at approximately midnight, 03/25/2017. He was found to be tachycardiac; He had a tender abdomen and a CT scan of the abdomen and pelvis with IV contrast showed thrombus of the superior mesenteric artery. Efforts were made to transfer the patient to [facility]; however, due to unavailability of transportation, the patient was kept at [facility] emergency department. Dr. Campos, general surgery, was contacted at approximately 3:20 a.m. and saw the patient and reviewed imaging studies. Discussion was held with the on-call radiologist at [facility] and confirmation was made that the patient had on 03/14/2017 CT scan of the abdomen partial occlusion of the SMA which was previously not reported, and now on 03/26/2017 imaging, complete occlusion of the proximal SMA. 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 The mid and distal portions of the SMA were patent. The proximal jejunum was felt to be ischemic. There was no evidence of perforation, free air phlegmon or any other acute pathology Dr. Campos had conversation with Dr. Tamez, trauma surgeon at [facility]. We discussed the current situation. Of note, the patient although tachycardiac and with leukocytosis of 19,000, had no evidence of metabolic acidosis with bicarb of 24, blood sugar of 163. The surgeons concurred that exploratory laparotomy, probable bowel resection and restorationist of SMA flow was indicated, and optimally should be performed at [facility] with vascular surgical capabilities. Dr. Campos was able to mobilize transportation and in the interim, nasogastric tube was inserted by Dr. Hung, 18 gauge, which returned approximately 800 mL of coffee ground, dark material. The patient felt some better, but remained in pain with persistent tachycardia. At approximately 4:30, the patient was transported via ground transport to [facility]. During the patient's stay in the emergency department at [facility], he received a heparin bolus and a heparin drip, as well as intravenous antibiotics and IV fluids. The patient had voided twice. In summary, the patient is a 56-year-old male with known proximal jejunal ischemia status post exploration, second-look, at both [facility] and [facility] approximately 10 days ago with now progressive abdominal pain and CT scan findings consistent with occlusion of the SMA's. PLAN: As stated, the patient has been anticoagulated, and transported to [facility] for further intervention. Receiving trauma acute surgeon, Dr. Marycarmen Tamez, aware of patient impending arrival. DICTATING PHYSICIAN: RAUDEL CAMPOS M.D. [id number] PHY#: [id number] ID: [id number] JOB#: [id number] ACCT: [id number] cc:RAUDEL CAMPOS M.D. > [facility]AMPUSLilian
--- NOTE | 2017-03-27 12:59 | EKG REPORT ---
SEVERITY:- ABNORMAL ECG - POSSIBLE ATRIAL ARRHYTHMIA, A-RATE 196 LEFT ANTERIOR FASCICULAR BLOCK BORDERLINE R WAVE PROGRESSION, ANTERIOR LEADS RECOMEND EKG WITH 'MIRLANDE LEAD' : Confirmed by: Jayashere Hunt MD 27-Mar-2017 12:58:33
== END 2017-03-26 04:34 | disposition short-term general hospital (02) ==
LOC: ER 23:05
DX: K55.019 Acute (reversible) ischemia of small intestine, extent unspecified (principal); G89.18 Other acute postprocedural pain; R10.9 Unspecified abdominal pain; E78.00 Pure hypercholesterolemia, unspecified; I10 Essential (primary) hypertension; R00.0 Tachycardia, unspecified; R61 Generalized hyperhidrosis; Z88.6 Allergy status to analgesic agent; Z87.442 Personal history of urinary calculi
CPT/HCPCS: 93005; 99291; 99292; 96361; 96375; 96365; 96367; 36415; 85025; 85610; 85730; 80053; 81001; 74174; 93010; J1644 ×2; J2270; J2405; J7030; J2543